=== PATIENT | male | born 1980 | race American Indian/Alaskan Native ===

== ENCOUNTER 2019-04-20 20:30 | Emergency (ER) | payer MEDICAID ==
--- NOTE | 2019-04-20 22:17 | Emergency Department Report ---
Blank Doc - Documentation Documentation: 38-year-old male that presents with bleeding in stool x5 days. This initial assessment/diagnostic orders/clinical plan/treatment(s) is/are subject to change based on patient's health status, clinical progression and re- assessment by fellow clinical providers in the ED. Further treatment and workup at subsequent clinical providers discretion. Patient/guardians urged not to elope from the ED as their condition may be serious if not clinically assessed and managed. Initial orders include: 1- Patient sent to MAIN ED for further evaluation and treatment 2- labs
[2019-04-20 22:19] VITALS: BP 140/77
[2019-04-20 23:26] LABS: Basophils % (Auto) 0.4 % (0.0-1.8); Eosinophils # (Auto) 0.1 K/mm3 (0.0-0.4); Eosinophils % (Auto) 2.1 % (0.0-4.3); Hematocrit 44.1 % (35.5-45.6); Hemoglobin 15.2 gm/dl (11.8-15.2); Lymphocytes # (Auto) 1.2 K/mm3 (1.2-5.4); Lymphocytes % (Auto) 22.6 % (13.4-35.0); Mean Corpuscular HGB Conc 35 % (32-34); Mean Corpuscular Volume 100 fl (84-94); Monocytes # (Auto) 0.8 K/mm3 (0.0-0.8); Monocytes % (Auto) 15.7 % (0.0-7.3); Platelet Count 178 K/mm3 (140-440)
[2019-04-20 23:51] LABS: Albumin 4.2 g/dL (3.9-5); BUN/Creatinine Ratio 12; Blood Urea Nitrogen 13 mg/dL (9-20); Calcium 9.6 mg/dL (8.4-10.2); Hemolysis Index 140
[2019-04-21 00:11] LABS: Alanine Aminotransferase 42 units/L (7-56)
--- NOTE | 2019-04-21 03:05 | Emergency Department Report ---
ED GI Bleed HPI - General Chief complaint: GI Bleed Stated complaint: BLOOD IN STOOL Time Seen by Provider: 04/20/19 22:16 Source: patient Mode of arrival: Ambulatory Limitations: No Limitations - History of Present Illness Initial comments: 38-year male with a past medical history of traumatic brain injury at age 6 presents to the hospital complains of blood on toilet paper after bowel movement for the past 5 days. Patient states he has been straining to use the bathroom and having a small amount of stool output at a time. He does not see blood in the toilet but does notice blood after wiping his anal area. He denies anal pain or swelling. He denies abdominal pain, nausea, vomiting, melena, or fever. No history of abdominal surgeries - Related Data Previous Rx's Medication Instructions Recorded Last Taken Type Polyethylene Glycol 3350 [Miralax] 17 gm PO DAILY PRN #10 dose 04/21/19 Unknown Rx Allergies Allergy/AdvReac Type Severity Reaction Status Date / Time No Known Allergies Allergy Unverified 04/21/19 03:07 ED Review of Systems ROS: Stated complaint: BLOOD IN STOOL Other details as noted in HPI Comment: All other systems reviewed and negative ED Past Medical Hx - Past Medical History Previous Medical History?: No - Surgical History Additional Surgical History: Traumatic brain injury age 6 - Social History Smoking Status: Former Smoker Substance Use Type: None - Medications Home Medications: Home Medications Medication Instructions Recorded Confirmed Last Taken Type Polyethylene Glycol 3350 [Miralax] 17 gm PO DAILY PRN #10 dose 04/21/19 Unknown Rx ED Physical Exam - General Limitations: No Limitations - Other Other exam information: General: No acute distress Head: Atraumatic Eyes: normal appearance ENT: Moist mucous membranes Neck: Normal appearance, no midline tenderness Chest: Clear to auscultation bilaterally CV: Regular rate and rhythm Abdomen: Soft, normal bowel sounds, nontender, nondistended, no rebound or guarding Rectal: No external hemorrhoids or fissures noticeable. Patient refused/declined rectal examination Back: Normal inspection Extremity: Normal inspection, full range of motion Neuro: Alert O x 3, no facial asymmetry, speech clear, no gross motor sensory deficit Psych: Appropriate behavior Skin: No rash ED Course Vital Signs 04/20/19 22:17 Temperature 99 F Pulse Rate 90 Respiratory 18 Rate Blood Pressure 140/77 O2 Sat by Pulse 96 Oximetry ED Medical Decision Making - Lab Data Result diagrams: 04/20/19 22:49 04/20/19 22:49 Lab Results 04/20/19 04/20/19 Range/Units 22:49 22:49 WBC 5.4 (4.5-11.0) K/mm3 RBC 4.40 (3.65-5.03) M/mm3 Hgb 15.2 (11.8-15.2) gm/dl Hct 44.1 (35.5-45.6) % MCV 100 H (84-94) fl MCH 35 H (28-32) pg MCHC 35 H (32-34) % RDW 14.0 (13.2-15.2) % Plt Count 178 (140-440) K/mm3 Lymph % (Auto) 22.6 (13.4-35.0) % [place] % (Auto) 15.7 H (0.0-7.3) % Eos % (Auto) 2.1 (0.0-4.3) % Baso % (Auto) 0.4 (0.0-1.8) % Lymph # 1.2 (1.2-5.4) K/mm3 [place] # 0.8 (0.0-0.8) K/mm3 Eos # 0.1 (0.0-0.4) K/mm3 Baso # 0.0 (0.0-0.1) K/mm3 Seg Neutrophils % 59.2 (40.0-70.0) % Seg Neutrophils # 3.2 (1.8-7.7) K/mm3 Sodium 139 (137-145) mmol/L Potassium 4.6 (3.6-5.0) mmol/L Chloride 101.7 (98-107) mmol/L Carbon Dioxide 21 L (22-30) mmol/L Anion Gap 21 mmol/L BUN 13 (9-20) mg/dL Creatinine 1.1 (0.8-1.5) mg/dL Estimated GFR > 60 ml/min BUN/Creatinine Ratio 12 % Glucose 83 (75-100) mg/dL Calcium 9.6 (8.4-10.2) mg/dL Total Bilirubin 0.90 (0.1-1.2) mg/dL AST 84 H (5-40) units/L ALT 42 (7-56) units/L Alkaline Phosphatase 53 (35-129) units/L Total Protein 7.8 (6.3-8.2) g/dL Albumin 4.2 (3.9-5) g/dL Albumin/Globulin Ratio 1.2 % Lipase 40 (13-60) units/L - Medical Decision Making Patient presents to the hospital with several episodes of blood on toilet paper after bowel movement. Patient refused digital rectal exam. H&H normal without signs of acute hemorrhage. Patient reports constipation with straining during bowel movement. Patient will be treated with stool softener and encouraged to follow-up with PMD and GI if symptoms continue - Differential Diagnosis Anal fissure, internal/external hemorrhoids, constipation, diverticulosis Critical Care Time: No Critical care attestation.: If time is entered above; I have spent that time in minutes in the direct care of this critically ill patient, excluding procedure time. ED Disposition Clinical Impression: Constipation, Rectal bleed Disposition: TO HOME OR SELFCARE Is pt being admited?: No Does the pt Need Aspirin: No Condition: Stable Instructions: Rectal Bleeding (ED), Constipation (ED) Additional Instructions: Take the medication as prescribed. Follow-up with your doctor or doctor/clinic provided. Return if symptoms worsen as indicated by your discharge instructions. Prescriptions: Polyethylene Glycol 3350 [Miralax] 17 gm PO DAILY PRN #10 dose PRN Reason: Constipation Referrals: [facility] [Provider Group] - 3-5 Days ([employer]) [facility] [Provider Group] - 3-5 Days (Primary care clinic) EDMUNDO WILHELM MD [Staff Physician] - 3-5 Days (Primary care doctor) Time of Disposition: 03:07
== END 2019-04-21 02:00 | disposition home or self-care (01) ==
LOC: ED 20:30
DX: K59.00 Constipation, unspecified (principal); K62.5 Hemorrhage of anus and rectum; Z87.891 Personal history of nicotine dependence
CPT/HCPCS: 36415; 80053; 83690; 85025